=== PATIENT | female | born 1965 | race Caucasian/White ===

== ENCOUNTER 2020-07-31 10:00 | Outpatient (RCR) | payer BC, OTHER, SELFPAY | END 2020-09-11 11:17 | disposition home or self-care (01) | LOC: OT 10:00 | PROVIDERS: PCP Family Medicine; Visit Provider Orthopaedic Surgery Adult Reconstructive Orthopaedic Surgery | DX: M75.41 Impingement syndrome of right shoulder (principal) | CPT/HCPCS: 97035; 97110; 97165; 97530 ==

== ENCOUNTER 2021-02-20 13:40 | Emergency (ER) | payer BC, OTHER, SELFPAY ==
[2021-02-20 14:41] VITALS: BP 131/78; PULSE 80; RESP 18; TEMP 36.8; O2SAT 96; BMI 38.9
--- NOTE | 2021-02-20 15:35 | HMH.EDUTC ---
[facility] [place] Impression: UTI (urinary tract infection) Qualifiers: Urinary tract infection type: acute cystitis Hematuria presence: with hematuria Qualified Code(s): N30.01 - Acute cystitis with hematuria Disposition: Home, Self-Care Condition on Discharge: Good Instructions: Urinary Tract Infection, Urine Culture, DI for Urinary Tract Infection (UTI), Phenazopyridine Additional Instructions: Drink plenty of fluids. Take tylenol or ibuprofen for pain or fever. Take the medications as directed. Follow up with your regular doctor. GO TO THE ER FOR ANY WORSENING SYMPTOMS The pyridium will make your urine turn orange, this is an expected side effect. It will stain your clothes if it comes into contact with them. Prescriptions: Sulfamethoxazole/Trimethoprim [Bactrim DS tablet] 1 each PO BID 7 Days #14 tab Transmission Status: Received by [facility] Phenazopyridine HCl [Pyridium 200mg Tablet] 200 pow PO TID #6 tab Transmission Status: Received by [facility] Ondansetron [Zofran 4mg ODT] 4 mg PO DAILYP PRN #12 tab PRN Reason: Nausea Transmission Status: Received by [facility] Referrals: Kimi Dickson APRN [Primary Care Provider] - Time of Disposition: 15:38 Medical Decision Making - Medical Records Medical records reviewed: No: I reviewed the patient's medical records. - Angus Inquiry Pt receiving controlled substance: No Vital Signs: 02/20/21 14:41 02/20/21 15:57 Temperature 98.3 F 98.3 F Temperature Source Oral Pulse Rate 80 Pulse Rate [Right Radial] 80 Respiratory Rate 18 18 Blood Pressure 131/78 Blood Pressure [Right Arm] 131/78 Blood Pressure Mean [Right Arm] 95 Blood Pressure Source [Right Arm] Automatic Cuff Blood Pressure Position [Right Arm] Sitting 02 Sat by Pulse Oximetry 96 Oxygen Delivery Method Room Air - Lab Data Lab results reviewed: Yes: I reviewed the patient's lab results. Lab Results 02/21/21 10:10: Urine Color Yellow, Urine Appearance Clear, Urine pH 5.5, Ur Specific [place] 1.030, Urine Protein Negative, Urine Glucose (UA) Negative, Urine Ketones Negative, Urine Blood Negative, Urine Nitrate Negative, Urine Bilirubin Negative, Urine Urobilinogen 0.2, Ur Leukocyte Esterase Trace Orders (Tests/Meds): ORDERS Category Date Time Status Urine Culture Routine Micro 02/20/21 14:[address] [facility] [place] - General Stated complaint: possible uti Time Seen by Provider: 02/20/21 15:00 Mode of Arrival: Ambulatory Source of Information: Patient Limitations: No Limitations Description of Symptoms (Recalled from Triage Doc. by RN): c/o possible uti HEENT Symptoms (Recalled from RN notes): No Resp Symptoms (Recalled from RN notes): No Skin Symptoms (Recalled from RN notes): No MS Symptoms (Recalled from RN notes): No Functional Status (Recalled from RN notes): n/a - History of Present Illness Provider Complaint: She c/o uti symptoms for the past 2 days. she has low back pain, dysuria and urinary frequency, - Related Data Home Medications Medication Instructions Recorded Confirmed Duloxetine HCl [Cymbalta 30mg 60 mg PO DAILY 05/01/19 05/01/19 capsule] Levothyroxine Sodium [Synthroid 15 mcg PO DAILY 05/01/19 05/01/19 25mcg (0.025mg) tablet] Meloxicam [Mobic 15 mg tab] 15 mg PO DAILY 05/01/19 05/01/19 Montelukast Sodium [Singulair 10mg 10 mg PO PM 05/01/19 05/01/19 tablet] Simvastatin [Zocor] 20 mg PO DAILY 05/01/19 05/01/19 Previous Rx's Medication Instructions Recorded Ondansetron [Zofran 4mg ODT] 4 mg PO DAILYP PRN #12 tab 02/20/21 Phenazopyridine HCl [Pyridium 200 pow PO TID #6 tab 02/20/21 200mg Tablet] Sulfamethoxazole/Trimethoprim 1 each PO BID 7 Days #14 tab 02/20/21 [Bactrim DS tablet] Allergies Allergy/AdvReac Type Severity Reaction Status Date / Time No Known Drug Allergies - Allergy Unknown Uncoded 05/24/17 15:34 Nkda - Wor
[2021-02-20 15:57] VITALS: BP 131/78; PULSE 80; RESP 18; TEMP 36.8; O2SAT 96
[2021-02-21 10:10] LABS: Apearance,Urine Clear (Clear); Color,Urine Yellow (Yellow); PH,Urine 5.5 (5.0-8.5)
[2021-02-21 10:11] LABS: Bilirubin,Urine Negative (Negative); Blood, Urine Negative (Negative); Glucose,Urine (UA) Negative (Negative); Ketones,Urine Negative (Negative); Protein,Urine Negative (Negative); UTC Leukocyte Esterase,Urine Trace (Negative); UTC Nitrate,Urine Negative (Negative); Urobilinogen,Urine 0.2 EU/dl (0.2)
== END 2021-02-20 15:58 | disposition home or self-care (01) ==
PROVIDERS: Emergency Provider Nurse Practitioner Family; PCP Nurse Practitioner Family
DX: N30.01 Acute cystitis with hematuria (principal)
CPT/HCPCS: 81003; 87086; 87088; 87186; 99202; G0463

== ENCOUNTER 2022-01-26 13:03 | Emergency (ER) | payer BC, SELFPAY ==
[2022-01-26 13:34] VITALS: BP 131/89; PULSE 100; RESP 19; TEMP 37.1; O2SAT 96; BMI 47.2
--- NOTE | 2022-01-26 13:37 | HMH.EDUTC ---
[facility] Disposition Clinical Impression: Strep throat Disposition: Home, Self-Care Condition on Discharge: Good Instructions: DI for Strep Throat, Strep Throat Additional Instructions: Drink plenty of fluids. Take tylenol or ibuprofen for pain or fever. Take the medications as directed. Follow up with your regular doctor. GO TO THE ER FOR ANY WORSENING SYMPTOMS Throw your tooth brush away and get a new one. Prescriptions: Amoxicillin [Amoxicillin 875MG Tab] 875 mg PO Q12H #20 tab Transmission Status: Pending to [facility] Benzonatate [Benzonatate 100mg cap] 100 mg PO TIDP PRN #30 cap PRN Reason: Cough Transmission Status: Pending to [facility] methylPREDNISolone [Medrol] 4 mg PO DIRECTED 6 Days #21 packet Transmission Status: Pending to [facility] Referrals: Provider,Referral, [Primary Care Provider] - Time of Disposition: 13:57 Medical Decision Making - Medical Records Medical records reviewed: No: I reviewed the patient's medical records. - Angus Inquiry Pt receiving controlled substance: No Vital Signs: 01/26/22 13:34 Temperature 98.7 F Temperature Source Oral Pulse Rate [Left] 100 H Respiratory Rate 19 Blood Pressure [Right Arm] 131/89 Blood Pressure Mean [Right Arm] 103 02 Sat by Pulse Oximetry 96 [facility] HPI - General Stated complaint: Headache, dizzy Time Seen by Provider: 01/26/22 13:37 Mode of Arrival: Ambulatory Source of Information: Patient Limitations: No Limitations Description of Symptoms (Recalled from Triage Doc. by RN): patient comes in with complaints of sinus congestion, dizziness. symptoms began last night. patient took an at home covid test and it was negative. HEENT Symptoms (Recalled from RN notes): Yes Resp Symptoms (Recalled from RN notes): No Skin Symptoms (Recalled from RN notes): No MS Symptoms (Recalled from RN notes): No Functional Status (Recalled from RN notes): n/a - History of Present Illness Provider Complaint: She states that for the past 2 day she has had sinus congestion, body aches, chills and she has felt bad. - Related Data Home Medications Medication Instructions Recorded Confirmed Duloxetine HCl [Cymbalta 30mg 60 mg PO DAILY 05/01/19 05/01/19 capsule] Levothyroxine Sodium [Synthroid 15 mcg PO DAILY 05/01/19 05/01/19 25mcg (0.025mg) tablet] Meloxicam [Mobic 15 mg tab] 15 mg PO DAILY 05/01/19 05/01/19 Montelukast Sodium [Singulair 10mg 10 mg PO PM 05/01/19 05/01/19 tablet] Simvastatin [Zocor] 20 mg PO DAILY 05/01/19 05/01/19 Previous Rx's Medication Instructions Recorded Ondansetron [Zofran 4mg ODT] 4 mg PO DAILYP PRN #12 tab 02/20/21 Phenazopyridine HCl [Pyridium 200 pow PO TID #6 tab 02/20/21 200mg Tablet] Sulfamethoxazole/Trimethoprim 1 each PO BID 7 Days #14 tab 02/20/21 [Bactrim DS tablet] Amoxicillin [Amoxicillin 875MG 875 mg PO Q12H #20 tab 01/26/22 Tab] Benzonatate [Benzonatate 100mg 100 mg PO TIDP PRN #30 cap 01/26/22 cap] methylPREDNISolone [Medrol] 4 mg PO DIRECTED 6 Days #21 01/26/22 packet Allergies Allergy/AdvReac Type Severity Reaction Status Date / Time No Known Allergies Allergy Verified 01/26/22 13:37 - Worker's Comp Is this a Worker's Comp case?: No [facility] History - Hepatitis A Screen Attestation statement:: This patient has been screened for Hepatitis A risk factors. I have reviewed the patient's past medical history: Yes - Social History Alcohol Intake: never Occupational Status: other ROS Obtained: Yes All systems reviewed & no additional complaints - Constitutional Constitutional: Reports as per HPI - Eyes Eyes: Denies eye discharge - ENT Ears, Nose, Mouth, and Throat: Reports as per HPI - Cardiovascular Cardiovascular: Denies chest pain - Respiratory Respiratory: Denies chest congestion, Reports cough Physical Exam - General General appearance: alert, in no apparent
[2022-01-26 14:01] VITALS: BP 131/89; PULSE 100; RESP 19; TEMP 37.1
== END 2022-01-26 14:05 | disposition home or self-care (01) ==
PROVIDERS: Emergency Provider Nurse Practitioner Family
DX: J02.0 Streptococcal pharyngitis (principal)
CPT/HCPCS: 99212; G0463

== ENCOUNTER → 2022-02-22 06:49 | Outpatient (CLI) | payer BC, SELFPAY ==
[2022-02-22 19:45] LABS: Basophils # 0.1 K/mm3 (0-0.2); Basophils % 1.3 % (0.1-2.0); Eosinophils # 0.2 K/mm3 (0.0-0.4); Eosinophils % 2.5 % (0.1-12.0); Hematocrit 46.2 % (37.0-47.0); Hemoglobin 14.9 g/dL (12.2-16.2); Lymphocytes # 1.7 K/mm3 (0.7-4.5); Lymphocytes % 26.1 % (10-50); Mean Corpuscular HGB Conc 32.3 g/dL (31.8-35.4); Mean Corpuscular Hemoglobin 29.2 pg (27.0-31.2); Mean Corpuscular Volume 90.3 fl (81-99); Mean Platelet Volume 9.6 fl (7.4-10.4); Monocytes # 0.3 K/mm3 (0.1-1.0); Monocytes % 4.9 % (1.7-9.3); Neutrophils # 4.3 K/mm3 (1.8-7.8); Neutrophils % 65.1 % (37.0-80.0); Platelet Count 278 K/mm3 (142-424); Red Blood Count 5.12 M/mm3 (4.20-5.40); Red Cell Distribution Width 14.1 % (11.5-17.5); White Blood Count 6.6 K/mm3 (4.8-10.8)
[2022-02-22 20:57] LABS: Chloride 104 mmol/L (98-107)
[2022-02-22 20:58] LABS: Sodium 141 mmol/L (136-145)
[2022-02-22 21:00] LABS: Alanine Aminotransferase 36 U/L (12-78); Albumin/Globulin Ratio 1.4 (1.1-1.8); Alkaline Phosphatase 118 U/L (38-126); Aspartate Amino Transferase 38 U/L (14-36); Blood Urea Nitrogen 15 mg/dl (7-17); Carbon Dioxide 28 mmol/L (22.0-30.0); Estimated Glomerular Filt Rate 86 ml/min (>60); GFR (African American) 104 ML/MIN (>60); Globulin 2.8 g/dL (1.3-3.2); Total Protein,Serum 6.8 g/dl (6.3-8.2)
[2022-02-22 21:01] LABS: Calcium 8.7 mg/dl (8.4-10.2); Chol/HDL Ratio 7.6 (1-3.5); Cholesterol 244 mg/dl (140-200); Glucose 93 mg/dl (74-100); HDL Cholesterol 32 mg/dl (40-60); Triglycerides 398 mg/dl (30-150); VLDL Cholesterol 80 mg/dL (0-40)
[2022-02-22 21:03] LABS: Bilirubin,Total < 0.1 mg/dl (0.2-1.3)
[2022-02-22 21:12] LABS: Direct LDL Cholesterol 140.62 mg/dL (100-129)
[2022-02-22 21:31] LABS: Thyroid Stimulating Hormone 7.46 uIU/mL (0.465-4.68)
[2022-02-22 21:54] LABS: Hemoglobin A1C 5.4 % (4.0-6.0)
== END ==
PROVIDERS: PCP Family Medicine; Visit Provider Family Medicine
DX: N39.0 Urinary tract infection, site not specified (principal); E03.9 Hypothyroidism, unspecified; E78.5 Hyperlipidemia, unspecified; R53.83 Other fatigue; B96.29 Other Escherichia coli [E. coli] as the cause of diseases classified elsewhere
CPT/HCPCS: 80053; 80061; 83036; 84443; 85025; 87086; 87088; 87186

== ENCOUNTER → 2022-08-09 23:34 | Outpatient (CLI) | payer BC, SELFPAY | PROVIDERS: PCP Family Medicine; Visit Provider Family Medicine | DX: E03.9 Hypothyroidism, unspecified (principal) | CPT/HCPCS: 84443 ==

== ENCOUNTER → 2022-09-08 19:30 | Outpatient (CLI) | payer OTHER, SELFPAY ==
[2022-09-08 18:12] LABS: Basophils # 0.1 K/mm3 (0-0.2); Basophils % 0.9 % (0.1-2.0); Eosinophils # 0.2 K/mm3 (0.0-0.4); Eosinophils % 2.2 % (0.1-12.0); Hematocrit 44.3 % (37.0-47.0); Hemoglobin 14.1 g/dL (12.2-16.2); Lymphocytes # 1.9 K/mm3 (0.7-4.5); Lymphocytes % 26.8 % (10-50); Mean Corpuscular HGB Conc 31.8 g/dL (31.8-35.4); Mean Corpuscular Hemoglobin 28.5 pg (27.0-31.2); Mean Corpuscular Volume 89.7 fl (81-99); Mean Platelet Volume 9.9 fl (7.4-10.4); Monocytes # 0.4 K/mm3 (0.1-1.0); Monocytes % 6.2 % (1.7-9.3); Neutrophils # 4.5 K/mm3 (1.8-7.8); Neutrophils % 63.9 % (37.0-80.0); Platelet Count 263 K/mm3 (142-424); Red Blood Count 4.94 M/mm3 (4.20-5.40); Red Cell Distribution Width 14.2 % (11.5-17.5)
[2022-09-08 18:55] LABS: Anion Gap 13.3 mEq/L (5-15); Blood Urea Nitrogen 17 mg/dl (7-17); Calcium 8.6 mg/dl (8.4-10.2); Carbon Dioxide 25 mmol/L (22.0-30.0); Chloride 105 mmol/L (98-107); Estimated Glomerular Filt Rate 86 ml/min (>60); GFR (African American) 104 ML/MIN (>60); Glucose 96 mg/dl (74-100); Potassium 4.3 mmoL/L (3.5-5.1); Sodium 139 mmol/L (136-145)
== END ==
PROVIDERS: PCP Family Medicine; Visit Provider Family Medicine
DX: M51.36 Other intervertebral disc degeneration, lumbar region (principal); R53.83 Other fatigue
CPT/HCPCS: 80048; 85025

== ENCOUNTER → 2022-09-09 12:19 | Outpatient (CLI) | payer OTHER, SELFPAY ==
--- NOTE | 2022-09-09 12:26 | XR_ITS ---
FINAL REPORT CLINICAL HISTORY: sciatica COMPARISON: 05/01/2019 FINDINGS: LUMBAR SPINE Five views lumbar spine were obtained. There is no acute fracture. There is no malalignment. There is minimal anterior osteophyte formation throughout the lumbar spine. There is no soft tissue abnormality. IMPRESSION: Minimal anterior osteophyte formation throughout the lumbar spine. No acute bony abnormality. Reviewed, Interpreted and Dictated by Jose Gray MD Transcribed by Brenna Berry Authenticated and [facility]
== END ==
PROVIDERS: PCP Family Medicine; Visit Provider Family Medicine
DX: M51.36 Other intervertebral disc degeneration, lumbar region (principal); R53.83 Other fatigue
CPT/HCPCS: 72110

== ENCOUNTER → 2023-04-01 23:19 | Outpatient (CLI) | payer OTHER, SELFPAY ==
[2023-03-31 16:30] LABS: Basophils # 0.1 K/mm3 (0-0.2); Basophils % 0.7 % (0.1-2.0); Eosinophils # 0.1 K/mm3 (0.0-0.4); Eosinophils % 2.1 % (0.1-12.0); Hematocrit 45.4 % (37.0-47.0); Hemoglobin 15.3 g/dL (12.2-16.2); Lymphocytes # 1.5 K/mm3 (0.7-4.5); Lymphocytes % 22.6 % (10-50); Mean Corpuscular HGB Conc 33.6 g/dL (31.8-35.4); Mean Corpuscular Hemoglobin 30.4 pg (27.0-31.2); Mean Corpuscular Volume 90.3 fl (81-99); Mean Platelet Volume 9.8 fl (7.4-10.4); Monocytes # 0.4 K/mm3 (0.1-1.0); Monocytes % 5.9 % (1.7-9.3); Neutrophils # 4.5 K/mm3 (1.8-7.8); Neutrophils % 68.7 % (37.0-80.0); Platelet Count 210 K/mm3 (142-424); Red Blood Count 5.03 M/mm3 (4.20-5.40); Red Cell Distribution Width 14.1 % (11.5-17.5); White Blood Count 6.6 K/mm3 (4.8-10.8)
[2023-03-31 16:41] LABS: Alanine Aminotransferase 48 U/L (12-78); Albumin Level 3.9 g/dl (3.5-5.0); Albumin/Globulin Ratio 1.4 (1.1-1.8); Alkaline Phosphatase 100 U/L (38-126); Amylase 51 U/L (30-110); Anion Gap 16.6 mEq/L (5-15); Aspartate Amino Transferase 42 U/L (14-36); Bilirubin,Total 0.4 mg/dl (0.2-1.3); Blood Urea Nitrogen 14 mg/dl (7-17); Calcium 8.8 mg/dl (8.4-10.2); Carbon Dioxide 24 mmol/L (22.0-30.0); Chloride 102 mmol/L (98-107); Estimated Glomerular Filt Rate 74 ml/min (>60); GFR (African American) 89 ML/MIN (>60); Globulin 2.8 g/dL (1.3-3.2); Glucose 103 mg/dl (74-100); Lipase 116 U/L (23-300); Potassium 4.6 mmoL/L (3.5-5.1); Sodium 138 mmol/L (136-145); Total Protein,Serum 6.7 g/dl (6.3-8.2)
== END ==
PROVIDERS: PCP Family Medicine; Visit Provider Nurse Practitioner Family
DX: R10.11 Right upper quadrant pain (principal)
CPT/HCPCS: 80053; 82150; 83690; 85025

== ENCOUNTER → 2023-04-18 07:06 | Outpatient (CLI) | payer OTHER, SELFPAY ==
--- NOTE | 2023-04-18 07:06 | CT_ITS ---
FINAL REPORT TECHNIQUE: Pre-and postcontrast axial CT images of the abdomen and pelvis were obtained. Coronal reformatted images were also obtained and reviewed.This study was performed with techniques to keep radiation doses as low as reasonably achievable (ALARA). Individualized dose reduction techniques using automated exposure control or adjustment of mA and/or kV according to the patient''''s size were employed. CLINICAL HISTORY: RUQ pain FINDINGS: CT OF THE ABDOMEN AND PELVIS WITH AND WITHOUT CONTRAST Abdomen: The heart is normal in size. There is moderate, diffuse fatty infiltration of the liver. Patient is status postcholecystectomy. The spleen is unremarkable. No adrenal mass is present. The pancreas has an unremarkable appearance. The kidneys are normal, without evidence of mass or hydronephrosis. The aorta is normal in caliber. There is no free fluid or adenopathy. No mass or abnormal fluid collection is seen. Pelvis: The appendix is not well-visualized. Bilateral tubal ligation clips are present. Uterus is anteverted. The urinary bladder is unremarkable. No inflammatory process is seen. There is no evidence of mass or adenopathy. There is no evidence of bowel obstruction. Precontrast imaging demonstrates no evidence of nephrolithiasis. IMPRESSION: No evidence of acute intra-abdominal process. Reviewed, Interpreted and Dictated by Jose Gray MD Transcribed by Rina Manley Authenticated and [facility]
--- NOTE | 2023-04-18 07:06 | CT_ITS ---
FINAL REPORT CLINICAL HISTORY: lung cancer screening FORMER SMOKER QUIT 5 YEARS AGO, 1.5PPD X35 YEARS WHEN SMOKING COMPARISON: 06/18/22 FINDINGS: CTDI vol (mGy): 2.90 DLP: 88.[address] images of the chest were obtained using the low-dose protocol for screening. There are a few, small scattered mediastinal lymph nodes some of which are calcified. There are also calcified lymph nodes in the right hilum. No axillary mass or adenopathy is identified. On the lung window images, mild diffuse interstitial opacities are seen bilaterally. There is a calcified granuloma at the right lung base. There is a 4 mm, noncalcified nodule in the periphery of the left upper lobe on series 8 image 4. IMPRESSION: 4 mm noncalcified nodule in the periphery of the left upper lobe. Lung RADS category 2. Recommend 12 month followup low-dose CT for further evaluation. Reviewed, Interpreted and Dictated by Jose Gray MD Transcribed by Rina Manley Authenticated and [facility]
--- NOTE | 2023-04-18 07:06 | MM_ITS ---
PROCEDURE INFORMATION: Exam: Bilateral Screening 3D Mammography Exam date and time: 04/18/2023 7:26 AM Age: 57 years old Clinical indication: Screening examination TECHNIQUE: Imaging protocol: Bilateral Screening tomosynthesis and 2D mammography including computer-aided detection (CAD) when performed. COMPARISON: Screening-Bilateral Mammography 06/10/2020 3:28 PM FINDINGS: MAMMOGRAPHY: Breast composition: There are scattered areas of fibroglandular density. Mass: None. Architectural distortion: None. Calcifications: No suspicious calcifications. Asymmetric density: None. Skin thickening: None. Axillary adenopathy: None. IMPRESSION: No mammographic evidence of malignancy. Annual screening is recommended unless otherwise clinically indicated. ASSESSMENT: BI-RADS Category 1: Negative
== END ==
PROVIDERS: PCP Family Medicine; Visit Provider Nurse Practitioner Family
DX: R10.11 Right upper quadrant pain (principal); Z12.31 Encounter for screening mammogram for malignant neoplasm of breast; Z12.2 Encounter for screening for malignant neoplasm of respiratory organs; Z72.0 Tobacco use
CPT/HCPCS: 71271; 74178; 77063; 77067; Q9967

== ENCOUNTER → 2023-04-20 13:41 | Outpatient (POV) | payer OTHER, SELFPAY ==
--- NOTE | 2023-04-20 14:29 | EXP.PAIN.OV ---
HPI Data of Consult Patient: new to practice Consult date: 04/20/23 Requesting Physician: Mariel Reyes APRN Primary Care Provider: Isreal Moore MD Consult Narrative Reason for consult: Low back pain, bilateral leg pain History of present illness: Ms. Mejia is a 57 year old female who presents today as a new patient. She is a referral from Radha Pinto APRN. Today she rates her pain a 7 out of 10. Patient states her pain is all in her low back with radiating symptoms into her bilateral lower extremities. Patient states this is been going on for years and progressively worsened over time. Patient denies any specific trauma or injury that initially led to her symptoms however she states they have just progressively worsened over time. Patient has tried Tylenol and ibuprofen along with heat and ice and topicals with no additional relief. Patient does describe her pain as an aching, throbbing, sharp sensation that is worse with increased ambulation. Patient states she does well when she is in a seated position. Patient denies any previous back surgery or injection history. She does state the pain interferes with her ability perform activities of daily living such as cooking and cleaning. Patient states she only takes Tylenol however it does not provide any additional relief. Her Angus has been reviewed and is appropriate. CC: Mariel Reyes APRN [facility] Disclaimer: The information contained in this section may have been updated after the patient was seen, as this information can be updated by other users. Medical History COPD (chronic obstructive pulmonary disease) Degenerative disc disease, lumbar Hyperlipidemia Hypothyroidism Surgical History History of bladder surgery History of cholecystectomy Family History Mother Coronary artery disease Brother Heart attack Cancer Social History Smoking Status: Current some day smoker alcohol intake: never substance use type: denies use current occupational status: unemployed and other Travel in the last 8 weeks: None household members: spouse housing: house Review of Systems Review of Systems Review of systems:: pertinent systems reviewed and negative unless documented below Review of systems (narrative): Review of Systems: General: No recent weight changes, no fever, no sleep disturbances Respiratory: No cough, no shortness of air, no recurring pulmonary infections Cardiovascular/peripheral vascular: No chest pain, no palpitations, no edema, no shortness of breath Gastrointestinal: No new onset incontinence, normal bowel movements reported Genitourinary: No new onset incontinence Musculoskeletal: Low back pain, bilateral leg pain Psychiatric: [Normal mood/affect] Neurological: [Denies weakness in extremities], [denies balance issues] Meds Home Medications and Allergies Home Medications Medication Instructions Recorded Confirmed Type colestipol 1 gram tablet 1 g PO BID #60 tabs 08/09/22 03/31/23 Rx trazodone 50 mg tablet 25 - 150 mg PO HS #30 tabs 08/09/22 03/31/23 Rx levothyroxine 100 mcg tablet 100 mcg PO DAILY 30 days #30 tabs 10/13/22 03/31/23 Rx (Synthroid) meloxicam 7.5 mg tablet See Rx Instructions .Route 10/13/22 03/31/23 Rx .COMPLEX #30 tabs simvastatin 40 mg tablet See Rx Instructions .Route 10/13/22 03/31/23 Rx .COMPLEX #30 tabs duloxetine 30 mg capsule,delayed See Rx Instructions .Route 03/22/23 03/31/23 Rx release .COMPLEX #30 caps New Prescriptions to Start Prescriptions: Allergies Allergy/AdvReac Type Severity Reaction Status Date / Time No Known Allergies Allergy Verified 03/31/23 10:08 Objective Narrative: Physical Exam: General: Alert and oriented x3, no acute distr
[2023-04-20 14:59] VITALS: BP 126/77; PULSE 89; RESP 20; O2SAT 96; BMI 40.7
== END ==
PROVIDERS: PCP Family Medicine; Visit Provider Nurse Practitioner Family
DX: M51.16 Intervertebral disc disorders with radiculopathy, lumbar region (principal)
CPT/HCPCS: 99202; G0463

== ENCOUNTER → 2023-05-19 11:48 | Outpatient (CLI) | payer OTHER, SELFPAY ==
--- NOTE | 2023-05-19 11:50 | MR_ITS ---
FINAL REPORT CLINICAL HISTORY: LOW BACK PAIN COMPARISON: None FINDINGS: Multiplanar MR imaging of the lumbar spine was performed without contrast. On the sagittal T2-weighted images, there is abnormal decreased signal in the L5-S1 disc. The vertebrae are of normal height. The vertebral alignment is normal. L1-2: There is no significant canal stenosis or neural foraminal narrowing. L2-3: There is no significant canal stenosis or neural foraminal narrowing. L3-4: There is no significant canal stenosis or neural foraminal narrowing. L4-5: There is no significant canal stenosis or neural foraminal narrowing. L5-S1: There is a mild midline disc protrusion, producing mild canal stenosis. IMPRESSION: Mild degenerative change at the L5-S1 level as described, with mild canal stenosis. Otherwise unremarkable MRI of the lumbar spine. Reviewed, Interpreted and Dictated by Jose Gray MD Transcribed by Lauren Arnold Authenticated and [facility]
== END ==
LOC: RAD 11:48
PROVIDERS: PCP Family Medicine; Visit Provider Nurse Practitioner Family
DX: M54.50 Low back pain, unspecified (principal)
CPT/HCPCS: 72148; 76376

== ENCOUNTER → 2023-05-25 13:11 | Outpatient (POV) | payer OTHER, SELFPAY ==
--- NOTE | 2023-05-25 13:46 | EXP.PAIN.SOA ---
[facility] Pain Management SOAP Note Subjective:: Patient is a pleasant 57-year-old female who presents today for lumbar MRI follow-up. We are currently treating the patient for degenerative disc disease of lumbar spine with lumbar radiculopathy symptoms. Today she rates her pain a 6 out of 10. Patient denies any new trauma or injury. Patient states she continues to have pain in her low back and legs that is worse with increased activity. Patient states that sitting does provide some rest. She describes this as an aching, throbbing sensation with occasional sharp shooting pains and does have some numbness and tingling into her lower extremities. Patient does state the pain interferes with her ability perform activities of daily living such as cooking and cleaning. Patient has tried and failed conservative therapy such as oral medication, heat and ice and topicals with no additional relief. Patient has tried exercising at home and stretching for longer than 6 weeks with minimal relief. Her Angus has been reviewed and is appropriate. Review of Systems: General: No recent weight changes, no fever, no sleep disturbances Respiratory: No cough, no shortness of air, no recurring pulmonary infections Cardiovascular/peripheral vascular: No chest pain, no palpitations, no edema, no shortness of breath Gastrointestinal: No new onset incontinence, normal bowel movements reported Genitourinary: No new onset incontinence Musculoskeletal: Low back pain, leg pain Psychiatric: [Normal mood/affect] Neurological: [Denies weakness in extremities], [denies balance issues] Objective:: Physical Exam: General: Alert and oriented x3, no acute distress, pleasant and cooperative Lungs: Respirations even and unlabored, symmetrical chest expansion Eyes: PERRL Musculoskeletal: Flexion and extension of lumbar [spine] somewhat guarded secondary to pain, [antalgic gait noted] Neurological: Speech clear, no gross sensory deficit FINDINGS: Multiplanar MR imaging of the lumbar spine was performed without contrast. On the sagittal T2-weighted images, there is abnormal decreased signal in the L5-S1 disc. The vertebrae are of normal height. The vertebral alignment is normal. L1-2: There is no significant canal stenosis or neural foraminal narrowing. L2-3: There is no significant canal stenosis or neural foraminal narrowing. L3-4: There is no significant canal stenosis or neural foraminal narrowing. L4-5: There is no significant canal stenosis or neural foraminal narrowing. L5-S1: There is a mild midline disc protrusion, producing mild canal stenosis. IMPRESSION: Mild degenerative change at the L5-S1 level as described, with mild canal stenosis. Otherwise unremarkable MRI of the lumbar spine. Reviewed, Interpreted and Dictated by Jose Gray MD Transcribed by Lauren Arnold Authenticated and [facility] Assessment:: Degenerative disc disease of lumbar spine with lumbar radiculopathy symptoms, lumbar spinal stenosis Plan:: Patient is experiencing worsening pain in her low back and legs with limited range of motion. I have discussed with the patient that she may benefit from a lumbar epidural steroid injection. Risk and benefits were discussed with the patient and she would like to proceed forward with this plan of care. Patient is not on any blood thinners. I have discussed and reviewed over the MRI results and explained to her that her L5-S1 level does have a protruding disc causing mild lumbar stenosis. We will submit for a diagnostic lumbar epidural steroid injection L5-S1. All epidural injections are done under fluoroscopic guidance to confirm accuracy and safety. Patient has been instructed to contact the clinic with any concerns before the next appointment. Dr. Gross has reviewed this note and agrees with this plan of care. This note was dictated using voice recognition softwar
[2023-05-25 14:14] VITALS: BP 132/70; PULSE 82; RESP 18; O2SAT 94; BMI 40.7
== END ==
PROVIDERS: PCP Family Medicine; Visit Provider Nurse Practitioner Family
DX: M51.16 Intervertebral disc disorders with radiculopathy, lumbar region (principal); M48.061 Spinal stenosis, lumbar region without neurogenic claudication
CPT/HCPCS: 99212; G0463

== ENCOUNTER 2023-06-14 12:44 | Day surgery (SDC) | payer OTHER, SELFPAY ==
[2023-06-14 12:57] VITALS: BP 145/82; PULSE 101; RESP 18; O2SAT 96; BMI 41.2
[2023-06-14 13:00] VITALS: BP 132/88; PULSE 93; RESP 18; O2SAT 96
[2023-06-14] MEDS: methylPREDNISolone ACETATE 80MG/ML VIAL 80 MG (13:00)
[2023-06-14 13:02] VITALS: BP 132/88; PULSE 93; RESP 18; O2SAT 96
--- NOTE | 2023-06-14 13:04 | P.PCN_ITS ---
Procedure Date: 06/14/23 Time: 13:00 Anesthesiologist:: Lul Teran CRNA Complications:: None Pre-procedure Diagnosis:: Degenerative disc lumbar spine multilevels. Lumbar radiculopathy. Multilevel lumbar disc bulge. Lumbar spinal stenosis. Post-procedure Diagnosis:: Same. Indications for Procedure:: Patient is a very pleasant 57-year-old female that comes our clinic today for a lumbar epidural steroid injection at the L5-S1 level. Patient reports low back pain as well as bilateral hip and leg radicular symptoms at times. She rates her pain 6/10. Procedure Details:: Procedure: Lumbar epidural steroid injection under fluoroscopy Informed consent was obtained and the risks and benefits of the procedure were explained to the patient. The patient was taken to the procedure room and noninvasive monitors placed, including noninvasive blood pressure cuff and pulse oximeter. The back was viewed using C-arm Fluoroscopy and prepped using Chloraprep as a cleansing solution and the L5-S1 interspace was palpated. Skin and subcutaneous tissues were anesthetized using lidocaine 1.5% and a 25-gauge needle. After this, an 18-gauge Touhy epidural needle was placed into the L5-S1 interspace and advanced using fluoroscopic guidance and loss of resistance to air until the epidural space was encountered. After confirmation of needle placement in the epidural space, with dye, a solution containing normal saline, 3 mL and Depo-Medrol 80 mg were incrementally injected into the lumbar epidural space. The patient tolerated the procedure well with no complications. The patient was observed in the Pain Clinic and then discharged home ne urologically intact. Plan and Disposition:: Patient was discharged without incident.
[2023-06-14 13:05] VITALS: BP 141/83; PULSE 91; RESP 16; O2SAT 96
== END 2023-06-14 13:05 | disposition home or self-care (01) ==
PROVIDERS: PCP Family Medicine; Visit Provider Nurse Anesthetist, Certified Registered
DX: M51.16 Intervertebral disc disorders with radiculopathy, lumbar region (principal); M51.26 Other intervertebral disc displacement, lumbar region; M48.061 Spinal stenosis, lumbar region without neurogenic claudication
CPT/HCPCS: 62323; J1040

== ENCOUNTER → 2023-06-29 12:52 | Outpatient (POV) | payer OTHER, SELFPAY ==
--- NOTE | 2023-06-29 13:20 | EXP.PAIN.SOA ---
[facility] Pain Management SOAP Note Subjective:: Patient is a pleasant 57-year-old female who presents today for follow-up of lumbar epidural steroid injection L5-S1 on 06/14/2023. We are currently treating the patient for degenerative disc disease of lumbar spine with lumbar radiculopathy symptoms, lumbar spinal stenosis. Today she rates her pain a 0 out of 10. Patient denies any new trauma or injury. She does state that the injection did help about 50% however only lasted 1 day. Patient states she was able to increase her activity but it was very short-lived. Patient does state today she is back to her baseline and that her pain is fine when she is sitting however it immediately jumps to a 5 or 6 when she is up and walking. Patient states she cannot do any activities without having significant pain in her low back and legs. Patient is currently managed with meloxicam 7.5 mg daily from her primary care provider. Patient denies any heart or kidney issues. Her Angus has been reviewed and is appropriate. Review of Systems: General: No recent weight changes, no fever, no sleep disturbances Respiratory: No cough, no shortness of air, no recurring pulmonary infections Cardiovascular/peripheral vascular: No chest pain, no palpitations, no edema, no shortness of breath Gastrointestinal: No new onset incontinence, normal bowel movements reported Genitourinary: No new onset incontinence Musculoskeletal: Low back pain Psychiatric: [Normal mood/affect] Neurological: [Denies weakness in extremities], [denies balance issues] Objective:: Physical Exam: General: Alert and oriented x3, no acute distress, pleasant and cooperative Lungs: Respirations even and unlabored, symmetrical chest expansion Eyes: PERRL Musculoskeletal: Flexion and extension of lumbar [spine] somewhat guarded secondary to pain, [antalgic gait noted] Neurological: Speech clear, no gross sensory deficit Assessment:: Degenerative disc disease of lumbar spine with lumbar radiculopathy symptoms, lumbar spinal stenosis Plan:: Patient continues to experience significant pain in her low back and legs. I have discussed with the patient that her symptoms are consistent with spinal stenosis with neurogenic claudication symptoms. I have discussed with the patient that she may benefit from a repeat epidural injection however at this time I will order a compounded cream and follow-up with her in 1 month. Patient will return to clinic in 1 month for reevaluation of symptoms and plan of care. Patient has been instructed to contact the clinic with any concerns before the next appointment. Dr. Gross has reviewed this note and agrees with this plan of care. This note was dictated using voice recognition software and make contain errors or omissions. [facility] Disclaimer: The information contained in this section may have been updated after the patient was seen, as this information can be updated by other users. Medical History COPD (chronic obstructive pulmonary disease) Degenerative disc disease, lumbar Hyperlipidemia Hypothyroidism Surgical History History of bladder surgery History of cholecystectomy Family History Mother Coronary artery disease Brother Heart attack Cancer Social History Smoking Status: Current every day smoker alcohol intake: never substance use type: denies use current occupational status: other Travel in the last 8 weeks: None household members: spouse housing: house
[2023-06-29 15:12] VITALS: BP 147/66; PULSE 77; RESP 18; O2SAT 95; BMI 40.7
== END ==
LOC: SC.PAIN 12:52
PROVIDERS: PCP Family Medicine; Visit Provider Nurse Practitioner Family
DX: M51.16 Intervertebral disc disorders with radiculopathy, lumbar region (principal); M48.062 Spinal stenosis, lumbar region with neurogenic claudication
CPT/HCPCS: 99212; G0463

== ENCOUNTER 2023-07-27 18:35 | Outpatient (CLI) | payer OTHER, SELFPAY ==
[2023-07-27 16:48] LABS: Basophils % 0.4 % (0.1-2.0); Eosinophils # 0.1 K/mm3 (0.0-0.4); Eosinophils % 2.2 % (0.1-12.0); Hematocrit 46.3 % (37.0-47.0); Hemoglobin 14.9 g/dL (12.2-16.2); Lymphocytes # 1.8 K/mm3 (0.7-4.5); Lymphocytes % 28.4 % (10-50); Mean Corpuscular HGB Conc 32.2 g/dL (31.8-35.4); Mean Corpuscular Hemoglobin 30.4 pg (27.0-31.2); Mean Corpuscular Volume 94.3 fl (81-99); Mean Platelet Volume 9.9 fl (7.4-10.4); Monocytes # 0.4 K/mm3 (0.1-1.0); Neutrophils # 3.9 K/mm3 (1.8-7.8); Platelet Count 212 K/mm3 (142-424); Red Blood Count 4.91 M/mm3 (4.20-5.40); White Blood Count 6.2 K/mm3 (4.8-10.8)
[2023-07-27 16:56] LABS: Alanine Aminotransferase 39 U/L (12-78); Albumin Level 3.9 g/dl (3.5-5.0); Albumin/Globulin Ratio 1.5 (1.1-1.8); Alkaline Phosphatase 110 U/L (38-126); Anion Gap 11.6 mEq/L (5-15); Aspartate Amino Transferase 37 U/L (14-36); Bilirubin,Total 0.3 mg/dl (0.2-1.3); Blood Urea Nitrogen 11 mg/dl (7-17); Calcium 8.9 mg/dl (8.4-10.2); Carbon Dioxide 28 mmol/L (22.0-30.0); Chloride 105 mmol/L (98-107); Chol/HDL Ratio 6.2 (1-3.5); Cholesterol 198 mg/dl (140-200); Estimated Glomerular Filt Rate 86 ml/min (>60); GFR (African American) 104 ML/MIN (>60); Globulin 2.6 g/dL (1.3-3.2); Glucose 99 mg/dl (74-100); HDL Cholesterol 32 mg/dl (40-60); Potassium 4.6 mmoL/L (3.5-5.1); Sodium 140 mmol/L (136-145); Total Protein,Serum 6.5 g/dl (6.3-8.2); Triglycerides 282 mg/dl (30-150); VLDL Cholesterol 56 mg/dL (0-40)
[2023-07-27 17:06] LABS: Direct LDL Cholesterol 112.07 mg/dL (100-129)
[2023-07-27 17:27] LABS: Thyroid Stimulating Hormone 2.67 uIU/mL (0.465-4.68)
[2023-07-27 18:24] LABS: Hemoglobin A1C 5.6 % (4.0-6.0)
== END 2023-07-27 23:59 ==
LOC: LAB.DROPOF 18:35
PROVIDERS: PCP Nurse Practitioner Family; Visit Provider Nurse Practitioner Family
DX: E78.5 Hyperlipidemia, unspecified (principal); E03.9 Hypothyroidism, unspecified
CPT/HCPCS: 80053; 80061; 83036; 84443; 85025

== ENCOUNTER 2023-10-27 09:17 | Outpatient (CLI) | payer OTHER, SELFPAY ==
[2023-10-27 16:42] LABS: Basophils # 0.1 K/mm3 (0-0.2); Basophils % 1.1 % (0.1-2.0); Eosinophils # 0.1 K/mm3 (0.0-0.4); Eosinophils % 2.2 % (0.1-12.0); Hematocrit 45.1 % (37.0-47.0); Hemoglobin 14.7 g/dL (12.2-16.2); Lymphocytes # 1.6 K/mm3 (0.7-4.5); Lymphocytes % 24.6 % (10-50); Mean Corpuscular HGB Conc 32.7 g/dL (31.8-35.4); Mean Corpuscular Hemoglobin 30.4 pg (27.0-31.2); Mean Corpuscular Volume 93.1 fl (81-99); Mean Platelet Volume 10.3 fl (7.4-10.4); Monocytes # 0.3 K/mm3 (0.1-1.0); Monocytes % 5.1 % (1.7-9.3); Neutrophils # 4.2 K/mm3 (1.8-7.8); Platelet Count 230 K/mm3 (142-424); Red Blood Count 4.85 M/mm3 (4.20-5.40); Red Cell Distribution Width 14.5 % (11.5-17.5); White Blood Count 6.3 K/mm3 (4.8-10.8)
[2023-10-27 16:45] LABS: Alanine Aminotransferase 40 U/L (12-78); Albumin Level 3.9 g/dl (3.5-5.0); Albumin/Globulin Ratio 1.4 (1.1-1.8); Alkaline Phosphatase 103 U/L (38-126); Anion Gap 12.4 mEq/L (5-15); Aspartate Amino Transferase 39 U/L (14-36); Bilirubin,Total 0.4 mg/dl (0.2-1.3); Blood Urea Nitrogen 15 mg/dl (7-17); Carbon Dioxide 28 mmol/L (22.0-30.0); Chloride 104 mmol/L (98-107); Chol/HDL Ratio 5.1 (1-3.5); Cholesterol 194 mg/dl (140-200); Estimated Glomerular Filt Rate 74 ml/min (>60); GFR (African American) 89 ML/MIN (>60); Globulin 2.7 g/dL (1.3-3.2); Glucose 116 mg/dl (74-100); HDL Cholesterol 38 mg/dl (40-60); Potassium 4.4 mmoL/L (3.5-5.1); Sodium 140 mmol/L (136-145); Total Protein,Serum 6.6 g/dl (6.3-8.2); Triglycerides 241 mg/dl (30-150); VLDL Cholesterol 48 mg/dL (0-40)
[2023-10-27 16:55] LABS: Direct LDL Cholesterol 118.04 mg/dL (100-129)
[2023-10-27 17:16] LABS: Thyroid Stimulating Hormone 3.29 uIU/mL (0.465-4.68)
[2023-10-27 17:23] LABS: Hemoglobin A1C 5.6 % (4.0-6.0)
== END 2023-10-27 23:59 | disposition home or self-care (01) ==
LOC: LAB.DROPOF 10-28 09:17
PROVIDERS: PCP Nurse Practitioner Family; Visit Provider Nurse Practitioner Family
DX: E03.9 Hypothyroidism, unspecified (principal); E78.5 Hyperlipidemia, unspecified
CPT/HCPCS: 80053; 80061; 83036; 84443; 85025

== ENCOUNTER 2024-05-01 10:56 | Outpatient (CLI) | payer OTHER, SELFPAY ==
[2024-05-01 16:19] LABS: Basophils # 0.1 K/mm3 (0-0.2); Basophils % 0.9 % (0.1-2.0); Eosinophils # 0.1 K/mm3 (0.0-0.4); Eosinophils % 2.1 % (0.1-12.0); Hematocrit 46.4 % (37.0-47.0); Hemoglobin 15.4 g/dL (12.2-16.2); Lymphocytes # 1.4 K/mm3 (0.7-4.5); Lymphocytes % 23.4 % (10-50); Mean Corpuscular HGB Conc 33.2 g/dL (31.8-35.4); Mean Corpuscular Volume 90.4 fl (81-99); Mean Platelet Volume 9.2 fl (7.4-10.4); Monocytes # 0.4 K/mm3 (0.1-1.0); Monocytes % 6.3 % (1.7-9.3); Neutrophils % 67.3 % (37.0-80.0); Platelet Count 229 K/mm3 (142-424); Red Blood Count 5.13 M/mm3 (4.20-5.40); Red Cell Distribution Width 14.2 % (11.5-17.5); White Blood Count 5.9 K/mm3 (4.8-10.8)
[2024-05-01 16:52] LABS: Hemoglobin A1C 5.6 % (4.0-6.0)
[2024-05-01 16:54] LABS: Alanine Aminotransferase 44 U/L (12-78); Albumin Level 4.2 g/dl (3.5-5.0); Albumin/Globulin Ratio 1.7 (1.1-1.8); Alkaline Phosphatase 113 U/L (38-126); Anion Gap 14.3 mEq/L (5-15); Aspartate Amino Transferase 36 U/L (14-36); Bilirubin,Total 0.6 mg/dl (0.2-1.3); Blood Urea Nitrogen 17 mg/dl (7-17); Calcium 8.9 mg/dl (8.4-10.2); Carbon Dioxide 24 mmol/L (22.0-30.0); Chloride 105 mmol/L (98-107); Chol/HDL Ratio 4.8 (1-3.5); Cholesterol 188 mg/dl (140-200); Estimated Glomerular Filt Rate 73 ml/min (>60); GFR (African American) 89 ML/MIN (>60); Globulin 2.5 g/dL (1.3-3.2); Glucose 98 mg/dl (74-100); HDL Cholesterol 39 mg/dl (40-60); Potassium 4.3 mmoL/L (3.5-5.1); Sodium 139 mmol/L (136-145); Total Protein,Serum 6.7 g/dl (6.3-8.2); Triglycerides 210 mg/dl (30-150); VLDL Cholesterol 42 mg/dL (0-40)
[2024-05-01 17:25] LABS: Thyroid Stimulating Hormone 3.94 uIU/mL (0.465-4.68)
[2024-05-01 18:17] LABS: HIV (1&2) Antibody Rapid NONREACTIVE (NONREACTIVE)
[2024-05-03 06:15] LABS: HCV Ab Non Reactive (Non Reactive)
== END 2024-05-01 23:59 | disposition home or self-care (01) ==
LOC: LAB.DROPOF 05-02 07:03
PROVIDERS: PCP Family Medicine; Visit Provider Family Medicine
DX: E03.9 Hypothyroidism, unspecified (principal); E78.5 Hyperlipidemia, unspecified; Z11.59 Encounter for screening for other viral diseases
CPT/HCPCS: 80050; 80053; 80061; 83036; 84443; 85025; 86803; 87389

== ENCOUNTER 2024-07-26 15:15 | Outpatient (CLI) | payer OTHER, SELFPAY ==
[2024-07-26 16:50] LABS: Basophils # 0.1 K/mm3 (0-0.2); Basophils % 0.8 % (0.1-2.0); Eosinophils # 0.2 K/mm3 (0.0-0.4); Eosinophils % 2.3 % (0.1-12.0); Hematocrit 46.8 % (37.0-47.0); Hemoglobin 14.9 g/dL (12.2-16.2); Lymphocytes # 1.6 K/mm3 (0.7-4.5); Lymphocytes % 22.2 % (10-50); Mean Corpuscular HGB Conc 31.8 g/dL (31.8-35.4); Mean Corpuscular Hemoglobin 28.7 pg (27.0-31.2); Mean Corpuscular Volume 90.2 fl (81-99); Mean Platelet Volume 11.1 fl (7.4-10.4); Monocytes # 0.5 K/mm3 (0.1-1.0); Monocytes % 6.2 % (1.7-9.3); Platelet Count 227 K/mm3 (142-424); Red Blood Count 5.19 M/mm3 (4.20-5.40); Red Cell Distribution Width 13.9 % (11.5-17.5); White Blood Count 7.3 K/mm3 (4.8-10.8)
[2024-07-26 18:07] LABS: Albumin Level 4.1 g/dl (3.5-5.0)
[2024-07-26 18:08] LABS: Chloride 105 mmol/L (98-107); Potassium 4.4 mmoL/L (3.5-5.1); Sodium 138 mmol/L (136-145)
[2024-07-26 18:10] LABS: Alanine Aminotransferase 53 U/L (12-78); Albumin/Globulin Ratio 1.5 (1.1-1.8); Alkaline Phosphatase 111 U/L (38-126); Amylase 52 U/L (30-110); Anion Gap 11.4 mEq/L (5-15); Aspartate Amino Transferase 48 U/L (14-36); Bilirubin,Total 0.3 mg/dl (0.2-1.3); Blood Urea Nitrogen 16 mg/dl (7-17); Calcium 8.9 mg/dl (8.4-10.2); Carbon Dioxide 26 mmol/L (22.0-30.0); Estimated Glomerular Filt Rate 64 ml/min (>60); GFR (African American) 78 ML/MIN (>60); Globulin 2.8 g/dL (1.3-3.2); Glucose 101 mg/dl (74-100); Total Protein,Serum 6.9 g/dl (6.3-8.2)
[2024-07-26 18:11] LABS: Lipase 156 U/L (23-300)
[2024-07-26 18:27] LABS: T4 (Thyroxine) 9.2 ug/dl (5.53-11.0)
[2024-07-26 18:40] LABS: Thyroid Stimulating Hormone 6.25 uIU/mL (0.465-4.68)
== END 2024-07-26 23:59 | disposition home or self-care (01) ==
LOC: LAB.DROPOF 07-27 11:05
PROVIDERS: PCP Nurse Practitioner Family; Visit Provider Nurse Practitioner Family
DX: R10.11 Right upper quadrant pain (principal)
CPT/HCPCS: 80053; 82150; 83690; 83735; 84436; 84443; 85025

== ENCOUNTER 2024-08-23 09:15 | Outpatient (CLI) | payer OTHER, SELFPAY ==
--- NOTE | 2024-08-23 | US_ITS ---
FINAL REPORT TECHNIQUE: Multiple transverse and longitudinal images CLINICAL HISTORY: .rt side pain x 2 mos-- gb surg absent COMPARISON: None FINDINGS: The gallbladder is surgically absent. No biliary ductal dilatation is appreciated. No fluid collections are seen. There is fatty change of the liver. Limited portions of the right kidney are unremarkable. IMPRESSION: Fatty infiltration of the liver without evidence of biliary obstruction. Reviewed, Interpreted and Dictated by Dafne Kyle MD Transcribed by Digna Steele Authenticated and [facility]
== END 2024-08-23 23:59 | disposition home or self-care (01) ==
LOC: RAD 09:16
PROVIDERS: PCP Nurse Practitioner Family; Visit Provider Nurse Practitioner Family
DX: R10.11 Right upper quadrant pain (principal)
CPT/HCPCS: 76705

== ENCOUNTER 2024-10-26 11:00 | Outpatient (CLI) | payer OTHER, SELFPAY ==
[2024-10-26 17:25] LABS: Alanine Aminotransferase 46 U/L (12-78); Albumin/Globulin Ratio 1.5 (1.1-1.8); Alkaline Phosphatase 108 U/L (38-126); Anion Gap 11.6 mEq/L (5-15); Aspartate Amino Transferase 42 U/L (14-36); Bilirubin,Total 0.6 mg/dl (0.2-1.3); Blood Urea Nitrogen 11 mg/dl (7-17); Calcium 8.7 mg/dl (8.4-10.2); Carbon Dioxide 24 mmol/L (22.0-30.0); Chloride 105 mmol/L (98-107); Estimated Glomerular Filt Rate 86 ml/min (>60); GFR (African American) 104 ML/MIN (>60); Globulin 2.7 g/dL (1.3-3.2); Glucose 110 mg/dl (74-100); Potassium 4.6 mmoL/L (3.5-5.1); Sodium 136 mmol/L (136-145); Total Protein,Serum 6.7 g/dl (6.3-8.2)
[2024-10-26 17:53] LABS: Thyroid Stimulating Hormone 3.21 uIU/mL (0.465-4.68)
== END 2024-10-26 23:59 | disposition home or self-care (01) ==
LOC: LAB.DROPOF 10-30 11:00
PROVIDERS: PCP Nurse Practitioner Family; Visit Provider Nurse Practitioner Family
DX: E03.9 Hypothyroidism, unspecified (principal)
CPT/HCPCS: 80053; 84443

== ENCOUNTER 2024-11-20 07:16 | Day surgery (SDC) | payer OTHER, SELFPAY ==
[2024-11-19 09:09] VITALS: BMI 40.7
[2024-11-20 07:33] VITALS: BP 127/75; PULSE 83; RESP 16; TEMP 36.1; O2SAT 96
[2024-11-20] MEDS: LACTATED RINGERS 1000ML 1,000 ML 50 ML IV (07:43)
--- NOTE | 2024-11-20 08:11 | EXP.GEN.HP ---
HPI HPI HPI: This is a 58-year-old female who presents for colonoscopy. She was recently seen by the gastroenterology service and was scheduled to undergo colonoscopy. She was scheduled to have her colonoscopy performed by the general surgery service secondary to insurance coverage issues . Forwarded from recent gastroenterology outpatient evaluation: This is a 58-year-old female who is here for couple of reasons. She reports right upper quadrant pain that radiates around to her back since May. She is status post cholecystectomy about 10 years ago. She reports postprandial urgency and diarrhea ever since then. No changes in her bowel habits. No melena hematochezia or mucus in her stool. Her last labs show a slight elevation of AST but normal bilirubin and alk phos. She does have a history of fatty liver disease. She does not think she had gallstones when she had her cholecystectomy. She is severely distended with gas bloat on exam in her upper abdomen. She reports she does not feel bloated. She denies belching or gassiness. She is exquisitely tender to palpation in the right upper quadrant as well. She thinks she had some right upper quadrant pain a while ago but it did not last very long and she got relief from it for a while. This came back in May and has been persistent and worse. The patient reports that her sister was recently diagnosed and from colon cancer at age 73. She has 2 other sisters that had primary lung cancer that metastasized to their liver and 1 recently as well. No other GI cancers in the family. Her last colonoscopy was 5 to 10 years ago she thinks. She denies any nausea vomiting or fever. The patient does not do carbonation. Nothing seems to make the right upper quadrant pain better. Having a bowel movement seems to make it worse. [facility] Disclaimer: The information contained in this section may have been updated after the patient was seen, as this information can be updated by other users. Medical History Degenerative disc disease, lumbar COPD (chronic obstructive pulmonary disease) Hypothyroidism Hyperlipidemia Surgical History History of bladder surgery History of cholecystectomy Family History Mother Coronary artery disease Brother Heart attack Cancer Sister Cancer 2 sisters one from lung and liver, and one from colon cancer. 1 sister just diagnosed with lung and liver Social History (Updated 11/20/24 @ 07:41 by Princess Barrios RN) Smoking Status: Current every day smoker tobacco type: e-cigarettes alcohol intake: never substance use type: denies use current occupational status: other Travel in the last 8 weeks?: None household members: spouse housing: house caffeine: No Have you lived/traveled outside [place] in past 30 days?: No Contact w/someone who lives/traveled outside [place] past 30 days?: No Exposure to someone with infectious disease in past 14 days?: No Do you have a fever (greater than 100.4 F or 38 C)?: No Have you tested positive for COVID-19?: No Exposed to someone with COVID-19 in past 14 days?: No Do you have a sore throat?: No Do you have a cough?: No Do you have any weakness?: No Are you experiencing any nausea/vomitting?: No Do you have any diarrhea?: No Are you experiencing any unusual bleeding?: No Do you have any muscle aches/pain?: No Do you have any abdominal pain?: No Are you experiencing loss of taste or smell?: No Other Medical History Have you received the Flu Vaccine for this season: Yes Have you received the Pneumonia Vaccine: No Meds Home Medications and Allergies Home Medications ?Medication ?Instructions ?Recorded ?Confirmed ?Type duloxetine 60 mg capsule,delayed 60 mg PO DAILY #30 caps 10/30/24 11/20/24 Rx release levothyroxine 112 mcg tablet 112 mcg PO DAILY #90 tabs 10/30/24 11/20/24 Rx ropinirole 0.25 mg tablet 0.25 mg PO HS #30 tabs 10/30/24 11/20/24 Rx simvastatin 40 mg tablet 40 mg PO DAILY 90 days #90 tabs 10/30/24 11/20/24 Rx New Prescriptions to Start Prescriptions: Allergies Allergy/AdvReac Type Severity Reaction Status Date / Time No Known Allergies Allergy Verified 11/20/24 07:44 Exam Data for Last 24 hours Vital signs and Labs for Last 24 Hours: Temp Pulse Resp BP Pulse Ox O2 Del Method 97.0 F L 83 16 127/75 96 Room Air 11/20/24 07:33 11/20/24 07:33 11/20/24 07:33 11/20/24 07:33 11/20/24 07:33 11/20/24 07:33 I & O for Last 24 hours: Intake & Output 11/17/24 11/18/24 11/19/24 11/20/24 11:59 11:59 11:59 11:59 Weight 245 lb Constitutional Constitutional: no acute distress *Routine HEENT Exam Head: Present normocephalic Eye: Present EOMI ENT: Present mucous membranes moist *Routine Neck Exam Neck: Present full ROM *Routine Respiratory Exam Respiratory: Absent respiratory distress *Routine Cardiovascular Exam Cardiovascular: Absent tachycardia *Routine Abdominal Exam Abdominal: Present soft *Routine Rectal Exam Rectal:: deferred *Routine Genitalia Exam Genitalia:: deferred *Routine Extremities Exam Extremities: Present full ROM *Routine Skin Exam Skin: Absent erythema *Routine Neurological Exam Neurological: Present alert Assessment and Plan *Assessment and plan (1) Family history of colon cancer: Status: Acute Category: Medical Code(s): Z80.0 - Family history of malignant neoplasm of digestive organs (2) Bloating: Status: Acute Category: Medical Code(s): R14.0 - Abdominal distension (gaseous) (3) Diarrhea: Status: Acute Qualifiers: Diarrhea type: unspecified type Qualified Code(s): R19.7 - Diarrhea, unspecified Category: Medical Code(s): R19.7 - Diarrhea, unspecified Plan Colonoscopy today I have discussed the risks and benefits including, but not limited to: Bleeding Infection Damage to surrounding tissue Inherent risks of sedation The patient agrees to proceed. Continue gastroenterology evaluation
--- NOTE | 2024-11-20 08:45 | HMH.SCOPE ---
Procedure: Date: 11/20/24 Patient Date of :: 1965 Procedure Performed:: Colonoscopy with polypectomy Indications:: Family history of colon cancer Abdominal bloating Diarrhea Performing Provider:: José Miguel Brown MD Referring Provider:: . Sedation:: Monitored anesthesia care Procedure:: After informed consent was obtained the patient was taken to the endoscopy suite. Sedation ensued after the patient was transferred to the left lateral decubitus position. Pulse, blood pressure, and oxygen saturation were monitored throughout the procedure. Digital rectal exam revealed no significant abnormality. The colonoscope was placed in position. The entire colon was evaluated. The colonoscope was carefully removed and the patient was transferred to recovery in stable condition. Please see findings and specimens below for detail. Findings:: Bowel preparation moderate Profound sigmoid tortuosity Severe spasticity/lack of relaxation Scattered diverticulosis (worse in sigmoid) Hemorrhoidal cushions Polyps (see specimens) Specimens:: Small cecal polyp (cold biopsy forceps) Polyp at ileocecal valve margin (cold biopsy forceps) Adjacent sessile lobulated right colon polyps (cold snare) Hepatic flexure polyp (cold snare) Recommendations:: Timing of repeat colonoscopy is pending pathology but will likely be between 1-2 years with alternate/extended prep (deferred to gastroenterology service) secondary to moderate prep, tortuosity, and spasticity/lack of relaxation. Continue gastroenterology evaluation as scheduled Complications:: No immediate Estimated blood obtained (mL): 1 Colonoscopy Component Colonoscopy Component Was a colonoscopy performed during today's procedure?: Yes Recommended follow up colonoscopy of at least 10 years?: No If no, follow up colonoscopy recommended in ___ years?: (See above) Reason for not recommending >/= 10 yr follow-up interval?: (See above)
[2024-11-20 08:50] VITALS: BP 121/69; PULSE 72; RESP 16; TEMP 36.1; O2SAT 94
[2024-11-20 09:00] VITALS: BP 109/64; PULSE 68; RESP 17; O2SAT 97
[2024-11-20 09:10] VITALS: BP 108/57; PULSE 69; RESP 18; O2SAT 97
[2024-11-20 09:20] VITALS: BP 115/68; PULSE 70; RESP 18; O2SAT 99
--- NOTE | 2024-11-20 10:45 | P.PNANES_ITS ---
[facility] Disclaimer: The information contained in this section may have been updated after the patient was seen, as this information can be updated by other users. Medical History Degenerative disc disease, lumbar COPD (chronic obstructive pulmonary disease) Hypothyroidism Hyperlipidemia Surgical History History of bladder surgery History of cholecystectomy Family History Mother Coronary artery disease Brother Heart attack Cancer Sister Cancer 2 sisters one from lung and liver, and one from colon cancer. 1 sister just diagnosed with lung and liver Social History (Updated 11/20/24 @ 07:41 by Princess Barrios RN) Smoking Status: Current every day smoker tobacco type: e-cigarettes alcohol intake: never substance use type: denies use current occupational status: other Travel in the last 8 weeks?: None household members: spouse housing: house caffeine: No [facility] Anesthesia Checklist Patient Identification Patient Identification: Verbal (Name & ) Structural Data Admitted From: Home Planned Operative Procedure/s: colonoscopy Consent for Planned Operative Procedure(s) Verified: Yes NPO Status Verified Time NPO: 00:00 Additional verifications Anesthesia Reactions: No Hx Blood Transfusions: No Blood Transfusion Reaction: No Airway Assessment Mallampati Score:: Class II C-Spine Mobility Assessed: Yes TMJ Mobility Assessed: Yes Dentition: Edentulous Neurological Assessment Level of Consciousness: Awake, Alert and Appropriate Anesthesia Plan Anesthesia Risk discussed: Yes Anesthesia Plan: Verified ASA Class: II Anesthesia Type: MAC
== END 2024-11-20 09:25 | disposition home or self-care (01) ==
PROVIDERS: PCP Family Medicine; Visit Provider Surgery
PROC: 0DJD8ZZ Inspection of Lower Intestinal Tract, Via Natural or Artificial Opening Endoscopic (ICD-10-PCS; CPT 45380; principal; 2024-11-20 08:15)
DX: D12.0 Benign neoplasm of cecum (principal); D12.3 Benign neoplasm of transverse colon; D12.6 Benign neoplasm of colon, unspecified; J44.9 Chronic obstructive pulmonary disease, unspecified; E78.5 Hyperlipidemia, unspecified; E03.9 Hypothyroidism, unspecified; F17.290 Nicotine dependence, other tobacco product, uncomplicated; Z79.899 Other long term (current) drug therapy; Z80.0 Family history of malignant neoplasm of digestive organs
CPT/HCPCS: 45380; 45385; J2003; J2704; J7120